=== PATIENT | male | born 1945 | race African-American/Black ===

== ENCOUNTER → 2016-08-24 | Outpatient (CLI) | payer MEDICARE, OTHER ==
[~2016-08-24] MED LIST: ATOR20TA86 PO; BENA5TAB26 PO; QUET200T PO; RISP1 PO; TAMS0.4C32 PO; TRAZ-147 PO
[2016-08-24 11:52] LABS: BASOPHILS % (AUTO) 0.4 % (0.0-2.0); EOSINOPHILS % (AUTO) 1.7 % (1.0-6.0); HEMATOCRIT 46.6 % (41-53); HEMOGLOBIN 14.9 g/dL (13.5-17.5); LYMPHOCYTES # (AUTO) 1.6 K/uL (1.0-4.8); LYMPHOCYTES % (AUTO) 27.1 % (22.0-44.0); MEAN CORPUSCULAR HEMOGLOBIN 28.8 pg (26.0-34.0); MEAN CORPUSCULAR VOLUME 90 fL (80-100); MONOCYTES # (AUTO) 0.4 K/uL (0.1-1.0); MONOCYTES % (AUTO) 6.7 % (2.0-9.0); NEUTROPHILS # (AUTO) 3.8 K/uL (1.8-7.7); NEUTROPHILS % (AUTO) 64.1 % (40.0-70.0); PLATELET COUNT (AUTO) 272 K/uL (150-450); RED BLOOD CELL COUNT(AUTO) 5.19 MIL/uL (4.50-5.90); RED CELL DISTRIBUTION WIDTH 15.2 % (11.5-14.5); WHITE BLOOD COUNT (AUTO) 5.9 K/uL (4.5-11.0)
[2016-08-24 12:01] LABS: ALBUMIN 3.7 g/dL (3.4-5.0); BILIRUBIN,TOTAL 0.3 mg/dL (0.1-1.0); CALCIUM, TOTAL 8.9 mg/dL (8.8-10.5); CREATININE 1.58 mg/dL (0.60-1.30); POTASSIUM 4.5 mmol/L (3.5-5.1); PROTHROMBIN TIME 10.7 SEC (9.4-11.6); TOTAL PROTEIN, SERUM 7.3 g/dL (6.4-8.2); URIC ACID 5.9 mg/dL (2.6-7.2)
[2016-08-24 12:03] LABS: HEMOGLOBIN A1C 6.2 % (4.5-6.2)
== END | disposition home or self-care (01) ==
LOC: LABPV 09:48
PROVIDERS: ATTEND Podiatrist Foot & Ankle Surgery
DX: I70.211 Atherosclerosis of native arteries of extremities with intermittent claudication, right leg (principal); R05 Cough; R09.81 Nasal congestion; M13.871 Other specified arthritis, right ankle and foot; M79.671 Pain in right foot; M25.70 Osteophyte, unspecified joint; E11.9 Type 2 diabetes mellitus without complications
CPT/HCPCS: 71020; 83036; 84550

== ENCOUNTER 2016-09-01 05:38 | Day surgery (SDC) | payer MEDICARE, OTHER ==
[~2016-09-01] VITALS: Ht 182.9 cm; Wt 91.8 kg
[~2016-09-01 05:38] MED LIST changes: -ATOR20TA86 PO; -RISP1 PO; -TRAZ-147 PO
[2016-09-01] MEDS ORDERED: SODIUM CHLORIDE 0.9% 1,000 ML IV ONE ×2 (05:45→06:00)
[2016-09-01] MEDS ORDERED: GUM MASTIC/STORAX/MSAL/ALCOHOL LIQUID 0.67 ML VIAL TP ONE (06:45)
[2016-09-01] MEDS: BUPIVACAINE HCL/PF 0.5% 30 ML VIAL ONE ×2 (07:49→07:51)
[2016-09-01] MEDS: LIDOCAINE HCL/PF 2% 5 ML VIAL ONE ×2 (07:49→07:52)
[2016-09-01] MEDS ORDERED: MEPERIDINE-PF 25 MG/ML SYRINGE IVP PRN (08:30)
[2016-09-01] MEDS ORDERED: FentaNYL CITRATE-PF 100 MCG/2 ML VIAL IVP PRN (08:30)
[2016-09-01] MEDS ORDERED: HYDROmorphone 2 MG/ML SYRINGE IVP PRN (08:30)
[2016-09-01] MEDS ORDERED: OXYGEN THERAPY IH SCH (08:48)
[2016-09-01] MEDS ORDERED: RINGERS SOLUTION,LACTATED 1,000 ML IV ONE (08:58)
[2016-09-01] MEDS ORDERED: CLINDAMYCIN 900 MG/D5% WATER 50 ML IV ONE (09:00)
[2016-09-01] MEDS ORDERED: ONDANSETRON HCL 4 MG/2 ML VIAL IVP ONE (12:00)
[2016-09-01] MEDS ORDERED: MIDAZOLAM HCL 2 MG/2 ML VIAL IVP ONE (12:00)
[2016-09-01] MEDS ORDERED: HYDROmorphone 2 MG/ML SYRINGE IVP ONE (12:00)
[2016-09-01] MEDS ORDERED: METOCLOPRAMIDE HCL 5 MG/ML 2 ML VIAL IVP ONE (12:00)
[2016-09-01] MEDS ORDERED: DEXAMETHASONE SOD PHOS 4 MG/ML VIAL IVP ONE (12:00)
[2016-09-01] MEDS ORDERED: FentaNYL CITRATE-PF 100 MCG/2 ML VIAL IVP ONE (12:00)
[2016-09-01] MEDS ORDERED: PROPOFOL 1% 20 ML VIAL IVP ONE (12:00)
== END 2016-09-01 11:55 | disposition home or self-care (01) ==
LOC: SURGERY 05:38
PROVIDERS: ATTEND Podiatrist Foot & Ankle Surgery
DX: M20.41 Other hammer toe(s) (acquired), right foot (principal); M24.574 Contracture, right foot; M19.071 Primary osteoarthritis, right ankle and foot; F17.200 Nicotine dependence, unspecified, uncomplicated; H40.9 Unspecified glaucoma; I10 Essential (primary) hypertension; F20.9 Schizophrenia, unspecified; G89.29 Other chronic pain; J40 Bronchitis, not specified as acute or chronic; Z88.0 Allergy status to penicillin; Z98.890 Other specified postprocedural states
CPT/HCPCS: 28285 ×2; 28308; 73630; 93005; C1713; J1100; J1170; J2250; J2405; J2704; J2765; J3010; J3490 ×3; J7030; J7120

== ENCOUNTER 2017-12-19 15:22 | Inpatient (IN) | payer MEDICARE, MEDICAID ==
[~2017-12-19] VITALS: Ht 182.9 cm; Wt 73.5 kg
[2017-12-19 15:43] LABS: GLUCOSE,POINT OF CARE 99 MG/DL (70-110)
[2017-12-19] MEDS ORDERED: QUEtiapine FUMARATE 100 MG TABLET PO ONE (16:30)
[2017-12-19] MEDS ORDERED: HYDROCODONE/ACETAMINOPHEN 5-325 MG TABLET PO ONE (16:30)
[2017-12-19] MEDS ORDERED: TAMSULOSIN HCL 0.4 MG CAPSULE PO ONE (16:30)
[2017-12-19] MEDS ORDERED: BENAZEPRIL HCL 20 MG TABLET PO ONE (16:30)
[2017-12-19 18:43] LABS: BASOPHILS % (AUTO) 0.7 % (0.0-2.0); EOSINOPHILS % (AUTO) 0.6 % (1.0-6.0); HEMATOCRIT 38.3 % (41-53); HEMOGLOBIN 12.9 g/dL (13.5-17.5); LYMPHOCYTES # (AUTO) 1.9 K/uL (1.0-4.8); LYMPHOCYTES % (AUTO) 28.4 % (22.0-44.0); MEAN CORPUSCULAR HEMOGLOBIN 29.3 pg (26.0-34.0); MEAN CORPUSCULAR HGB CONC 33.7 G/dL (31.0-37.0); MEAN CORPUSCULAR VOLUME 87 fL (80-100); MONOCYTES # (AUTO) 0.6 K/uL (0.1-1.0); NEUTROPHILS # (AUTO) 4.2 K/uL (1.8-7.7); NEUTROPHILS % (AUTO) 61.3 % (40.0-70.0); PLATELET COUNT (AUTO) 289 K/uL (150-450); RED CELL DISTRIBUTION WIDTH 14.6 % (11.5-14.5)
[2017-12-19 18:56] LABS: ANION GAP 8 mmol/L (8-16); CALCIUM, TOTAL 8.7 mg/dL (8.8-10.5); CARBON DIOXIDE 29 mmol/L (22-29); CHLORIDE 104 mmol/L (98-107); CREATININE 1.73 mg/dL (0.60-1.30); GLOMERULAR FILTR. RATE CALC 47 mL/min (>60); GLUCOSE,RANDOM 126 mg/dL (70-110); POTASSIUM 4.4 mmol/L (3.5-5.1); SODIUM SERUM 141 mmol/L (136-145); UREA NITROGEN, BLOOD 22 mg/dL (7-18)
[2017-12-19 18:57] LABS: AMPHET/METH SCREEN,URINE NEGATIVE (NEGATIVE); BARBITURATE SCREEN, URINE NEGATIVE (NEGATIVE); BENZODIAZEPINES SCREEN,URINE NEGATIVE (NEGATIVE); CANNABINOID SCREEN,URINE POSITIVE (NEGATIVE); COCAINE SCREEN,URINE NEGATIVE (NEGATIVE); METHADONE SCREEN, URINE NEGATIVE (NEGATIVE); OPIATE SCREEN,URINE NEGATIVE (NEGATIVE); PHENCYCLIDINE SCREEN,URINE NEGATIVE (NEGATIVE)
[2017-12-19 19:02] LABS: ALANINE AMINOTRANSFERASE 20 U/L (12-78); ALBUMIN 3.4 g/dL (3.4-5.0); ALKALINE PHOSPHATASE 80 U/L (46-116); ASPARTATE AMINOTRANSFERASE 23 U/L (15-37); BILIRUBIN,TOTAL 0.6 mg/dL (0.1-1.0); TOTAL PROTEIN, SERUM 6.7 g/dL (6.4-8.2)
[2017-12-19] MEDS ORDERED: LORazepam 2 MG TABLET PO PRN (19:15)
[2017-12-19] MEDS ORDERED: HALOPERIDOL 5 MG TABLET PO PRN (19:15)
[2017-12-19] MEDS ORDERED: ZOLPIDEM TARTRATE 10 MG TABLET PO PRN (19:15)
[2017-12-20 00:36] VITALS: BP 114/59
[2017-12-20] MEDS ORDERED: PNEUMOCOCCAL VACCINE POLYVALENT 0.5 ML VIAL [PPSV23] IM ONE (01:30)
[2017-12-20 06:34] LABS: GLUCOMETER DEV NAME(LOC) BV2S 2; GLUCOSE,POINT OF CARE 105 MG/DL (70-110)
[2017-12-20 08:58] VITALS: BP 123/61
[2017-12-20] MEDS ORDERED: ACETAMINOPHEN 325 MG TABLET PO PRN (11:00)
[2017-12-20 14:52] VITALS: BP 111/67
[2017-12-20] MEDS: IBUPROFEN 600 MG TABLET PO PRN (14:55)
[2017-12-20 16:14] VITALS: BP 125/66
[2017-12-20] MEDS: ALBUTEROL SULFATE HFA 90 MCG/PUFF 8 GM INHALER IH PRN (18:33)
[2017-12-20] MEDS: QUEtiapine FUMARATE 200 MG TABLET PO SCH (21:33)
[2017-12-21 01:09] VITALS: BP 113/64
[2017-12-21 08:25] VITALS: BP 121/76
[2017-12-21] MEDS: ALBUTEROL SULFATE HFA 90 MCG/PUFF 8 GM INHALER IH PRN (09:01)
[2017-12-21] MEDS: BENAZEPRIL HCL 20 MG TABLET PO SCH (09:01)
[2017-12-21] MEDS: TAMSULOSIN HCL 0.4 MG CAPSULE PO SCH (09:01)
[2017-12-21 09:12] LABS: CALCIUM, TOTAL 8.8 mg/dL (8.8-10.5); CREATININE 1.75 mg/dL (0.60-1.30); POTASSIUM 4.7 mmol/L (3.5-5.1)
[2017-12-21 09:27] LABS: HEMOGLOBIN A1C 6.3 % (4.5-6.2)
[2017-12-21 09:48] LABS: CHOL/HDL RATIO 1.8 (4.2-7.3); CHOLESTEROL 114 mg/dL (131-200); CREATINE KINASE MB 1.5 ng/mL (0-5); CREATINE KINASE, TOTAL 122 U/L (39-308); FREE T4 (FREE THYROXINE) 0.84 ng/dL (0.76-1.46); HDL CHOLESTEROL 65 mg/dL (40-60); LDL CHOL (CALC.) 38 mg/dL (0-130); THYROID STIMULATING HORMONE 0.56 uIU/mL (0.36-3.74); TRIGLYCERIDES 56 mg/dL (15-150)
[2017-12-21 09:58] LABS: GLUCOMETER DEV NAME(LOC) BV2S 2; GLUCOSE,POINT OF CARE 103 MG/DL (70-110)
[2017-12-21 10:02] LABS: URIC ACID 4.7 mg/dL (2.6-7.2)
[2017-12-21] MEDS ORDERED: MECLIZINE HCL 25 MG TABLET PO PRN (11:15)
[2017-12-21 12:23] LABS: FOLATE SERUM 6.8 ng/mL (5.4-)
[2017-12-21 16:22] VITALS: BP 119/64
[2017-12-21] MEDS: BACITRACIN 28.4 GM OINTMENT TP PRN (16:48)
[2017-12-21] MEDS: QUEtiapine FUMARATE 200 MG TABLET PO SCH (21:20)
[2017-12-22 02:40] VITALS: BP 113/62
[2017-12-22 06:48] VITALS: BP 110/73
[2017-12-22 08:49] VITALS: BP 122/64
[2017-12-22] MEDS: TAMSULOSIN HCL 0.4 MG CAPSULE PO SCH (08:59)
[2017-12-22] MEDS: BENAZEPRIL HCL 20 MG TABLET PO SCH (08:59)
[2017-12-22] MEDS: BACITRACIN 28.4 GM OINTMENT TP PRN (09:27)
[2017-12-22] MEDS: ALBUTEROL SULFATE HFA 90 MCG/PUFF 8 GM INHALER IH PRN (09:28)
[2017-12-22 16:13] VITALS: BP 118/69
[2017-12-22] MEDS: QUEtiapine FUMARATE 200 MG TABLET PO SCH (20:13)
[2017-12-23 05:28] VITALS: BP 129/75
[2017-12-23] MEDS: IBUPROFEN 600 MG TABLET PO PRN (05:32)
[2017-12-23] MEDS: ALBUTEROL SULFATE HFA 90 MCG/PUFF 8 GM INHALER IH PRN (05:36)
[2017-12-23] MEDS: BACITRACIN 28.4 GM OINTMENT TP PRN ×2 (06:45→08:30)
[2017-12-23 08:00] VITALS: BP 112/63
[2017-12-23] MEDS: TAMSULOSIN HCL 0.4 MG CAPSULE PO SCH (08:27)
[2017-12-23] MEDS: BENAZEPRIL HCL 20 MG TABLET PO SCH (08:27)
== END 2017-12-23 12:40 | disposition home or self-care (01) | DRG 750 ==
LOC: EMS 15:23 → B2S 20:40
PROVIDERS: ADMIT Psychiatry & Neurology Child & Adolescent Psychiatry; ATTEND Psychiatry & Neurology Psychiatry
DX: F25.9 Schizoaffective disorder, unspecified (principal); R64 Cachexia; E11.22 Type 2 diabetes mellitus with diabetic chronic kidney disease; J44.9 Chronic obstructive pulmonary disease, unspecified; D64.9 Anemia, unspecified; F14.90 Cocaine use, unspecified, uncomplicated; F17.210 Nicotine dependence, cigarettes, uncomplicated; H40.9 Unspecified glaucoma; I12.9 Hypertensive chronic kidney disease with stage 1 through stage 4 chronic kidney disease, or unspecified chronic kidney disease; N18.9 Chronic kidney disease, unspecified; N40.0 Benign prostatic hyperplasia without lower urinary tract symptoms; F12.10 Cannabis abuse, uncomplicated; Z59.0 Homelessness; Z85.46 Personal history of malignant neoplasm of prostate; Z88.0 Allergy status to penicillin; Z79.899 Other long term (current) drug therapy; Z68.22 Body mass index [BMI] 22.0-22.9, adult
CPT/HCPCS: 80074; 82306; 82607; 82746; 83036; 83735; 84439; 84443; 84550; 99285; 99406; G0480; J3535

== ENCOUNTER 2018-12-16 01:01 | Emergency (ER) | payer MEDICARE, OTHER ==
[~2018-12-16] VITALS: Ht 185.4 cm; Wt 77.3 kg
[2018-12-16] MEDS ORDERED: TAMSULOSIN HCL 0.4 MG CAPSULE PO ONE (03:45)
[2018-12-16 03:51] VITALS: BP 157/81
== END 2018-12-16 03:54 | disposition home or self-care (01) ==
LOC: EMS 01:05
DX: N40.0 Benign prostatic hyperplasia without lower urinary tract symptoms (principal); I10 Essential (primary) hypertension; E11.9 Type 2 diabetes mellitus without complications; F20.9 Schizophrenia, unspecified; F12.90 Cannabis use, unspecified, uncomplicated; F14.90 Cocaine use, unspecified, uncomplicated; F15.90 Other stimulant use, unspecified, uncomplicated; F17.210 Nicotine dependence, cigarettes, uncomplicated; Z88.0 Allergy status to penicillin; Z79.899 Other long term (current) drug therapy

== ENCOUNTER 2019-01-23 10:07 | Inpatient (IN) | payer MEDICARE, OTHER ==
[~2019-01-23] VITALS: Ht 185.4 cm; Wt 79.5 kg
[2019-01-23] MEDS ORDERED: UNKNOWN HTN MED PO (10:24)
[2019-01-23 10:57] LABS: BASOPHILS % (AUTO) 0.6 % (0.0-2.0); EOSINOPHILS % (AUTO) 1.7 % (1.0-6.0); HEMATOCRIT 38.5 % (41-53); HEMOGLOBIN 12.3 g/dL (13.5-17.5); LYMPHOCYTES # (AUTO) 1.4 K/uL (1.0-4.8); LYMPHOCYTES % (AUTO) 22.1 % (22.0-44.0); MEAN CORPUSCULAR HEMOGLOBIN 28.9 pg (26.0-34.0); MEAN CORPUSCULAR HGB CONC 31.9 G/dL (31.0-37.0); MEAN CORPUSCULAR VOLUME 91 fL (80-100); MONOCYTES # (AUTO) 0.7 K/uL (0.1-1.0); NEUTROPHILS # (AUTO) 3.9 K/uL (1.8-7.7); NEUTROPHILS % (AUTO) 63.6 % (40.0-70.0); PLATELET COUNT (AUTO) 260 K/uL (150-450); RED BLOOD CELL COUNT(AUTO) 4.25 MIL/uL (4.50-5.90); RED CELL DISTRIBUTION WIDTH 15.3 % (11.5-14.5)
[2019-01-23 11:09] LABS: PROTHROMBIN TIME 10.5 SEC (9.4-11.6)
[2019-01-23 11:16] LABS: CALCIUM, TOTAL 8.6 mg/dL (8.8-10.5); CREATININE 1.58 mg/dL (0.60-1.30); POTASSIUM 3.9 mmol/L (3.5-5.1)
[2019-01-23 11:40] LABS: APPEARANCE,URINE CLEAR (CLEAR); BILIRUBIN,URINE NEGATIVE (NEGATIVE); GLUCOSE, URINE (UA) NEGATIVE (NEGATIVE); KETONES,URINE NEGATIVE (NEGATIVE); LEUKOCYTE ESTERASE ,URINE NEGATIVE (NEGATIVE); NITRATE,URINE NEGATIVE (NEGATIVE); OCCULT BLOOD,URINE SMALL (NEGATIVE); PROTEIN,URINE NEGATIVE (NEGATIVE); UROBILINOGEN,URINE 0.2 mg/dL (<=1.0)
[2019-01-23 11:42] LABS: ALBUMIN 3.2 g/dL (3.4-5.0); BILIRUBIN,TOTAL 0.3 mg/dL (0.1-1.0); TOTAL PROTEIN, SERUM 6.2 g/dL (6.4-8.2)
[2019-01-23 12:00] LABS: BACTERIA,URINE None Seen /HPF (None Seen); SQUAMOUS EPITHELIAL CELL,UR Rare /LPF (None Seen)
[2019-01-23] MEDS ORDERED: LEVOFLOXACIN 750 MG/D5% WATER 150 ML IV ONE (12:00)
[2019-01-23] MEDS ORDERED: IPRATROPIUM BROMIDE 0.5 MG/2.5 ML NEB SOLUTION NEB ONE (12:00)
[2019-01-23] MEDS ORDERED: ALBUTEROL SULFATE 2.5 MG/0.5 ML NEB SOLUTION NEB ONE (12:00)
[2019-01-23] MEDS ORDERED: ACETAMINOPHEN 325 MG TABLET PO PRN ×2 (12:30→18:00)
[2019-01-23] MEDS ORDERED: 0.9% SODIUM CHLORIDE 10 ML SYRINGE IVP PRN (12:30)
[2019-01-23] MEDS ORDERED: CefTRIAXone SODIUM 2 GM in DEXTROSE 5%-WATER 50 ML IV SCH ×4 (18:00)
[2019-01-23] MEDS ORDERED: ONDANSETRON HCL 4 MG/2 ML VIAL IVP PRN (18:00)
[2019-01-23] MEDS ORDERED: ALBUTEROL SULFATE 2.5 MG/0.5 ML NEB SOLUTION NEB PRN (18:00)
[2019-01-23] MEDS ORDERED: MAGNESIUM HYDROXIDE SUSPENSION 30 ML UDCUP PO PRN (18:00)
[2019-01-23] MEDS ORDERED: HYDROCODONE/ACETAMINOPHEN 5-325 MG TABLET PO PRN (18:00)
[2019-01-23] MEDS ORDERED: IPRATROPIUM BROMIDE 0.5 MG/2.5 ML NEB SOLUTION NEB PRN (18:00)
[2019-01-23] MEDS ORDERED: ZOLPIDEM TARTRATE 5 MG TABLET PO PRN (18:00)
[2019-01-23] MEDS ORDERED: MORPHINE SULFATE 2 MG/ML SYRINGE IVP PRN (18:00)
[2019-01-23] MEDS ORDERED: BISACODYL 10 MG RECTAL RECTAL SUPPOSITORY PR PRN (18:00)
[2019-01-23] MEDS: AZITHROMYCIN 500 MG/NS 250 ML IV SCH (19:51)
[2019-01-23] MEDS ORDERED: QUEtiapine FUMARATE 200 MG TABLET PO SCH (21:00)
[2019-01-23] MEDS ORDERED: SODIUM CHLORIDE 0.9% 500 ML IV ONE (21:46)
[2019-01-23] MEDS: DOCUSATE SODIUM 100 MG CAPSULE PO SCH (22:25)
[2019-01-23] MEDS: HEPARIN SODIUM,PORCINE 5,000 UNITS/ML VIAL SQ SCH (22:26)
[2019-01-23] MEDS: CefTRIAXone SODIUM 2 GM in DEXTROSE 5%-WATER 50 ML IV SCH (22:26)
[2019-01-23 22:49] VITALS: BP 144/72
[2019-01-24] VITALS (7 sets, daily range): BP systolic 123–161; BP diastolic 63–81
[2019-01-24 07:22] LABS: BASOPHILS % (AUTO) 0.4 % (0.0-2.0); EOSINOPHILS % (AUTO) 1.5 % (1.0-6.0); HEMATOCRIT 40.2 % (41-53); HEMOGLOBIN 12.9 g/dL (13.5-17.5); LYMPHOCYTES # (AUTO) 1.5 K/uL (1.0-4.8); LYMPHOCYTES % (AUTO) 26.1 % (22.0-44.0); MEAN CORPUSCULAR HEMOGLOBIN 28.9 pg (26.0-34.0); MEAN CORPUSCULAR HGB CONC 32.1 G/dL (31.0-37.0); MEAN CORPUSCULAR VOLUME 90 fL (80-100); MONOCYTES # (AUTO) 0.7 K/uL (0.1-1.0); MONOCYTES % (AUTO) 11.9 % (2.0-9.0); NEUTROPHILS # (AUTO) 3.5 K/uL (1.8-7.7); NEUTROPHILS % (AUTO) 60.1 % (40.0-70.0); PLATELET COUNT (AUTO) 273 K/uL (150-450); RED BLOOD CELL COUNT(AUTO) 4.47 MIL/uL (4.50-5.90); RED CELL DISTRIBUTION WIDTH 15.4 % (11.5-14.5)
[2019-01-24 07:38] LABS: BILIRUBIN,TOTAL 0.3 mg/dL (0.1-1.0); CALCIUM, TOTAL 8.6 mg/dL (8.8-10.5); CREATININE 1.42 mg/dL (0.60-1.30); POTASSIUM 4.1 mmol/L (3.5-5.1)
[2019-01-24] MEDS: BENAZEPRIL HCL 20 MG TABLET PO SCH (08:26)
[2019-01-24] MEDS: TAMSULOSIN HCL 0.4 MG CAPSULE PO SCH (08:26)
[2019-01-24] MEDS: DOCUSATE SODIUM 100 MG CAPSULE PO SCH ×2 (08:26→21:00)
[2019-01-24] MEDS: HEPARIN SODIUM,PORCINE 5,000 UNITS/ML VIAL SQ SCH ×2 (08:27→16:15)
[2019-01-24] MEDS: AZITHROMYCIN 500 MG/NS 250 ML IV SCH (18:39)
[2019-01-24] MEDS ORDERED: DEXTROSE 50%-WATER 25 GM/50 ML SYRINGE IVP PRN (18:45)
[2019-01-24] MEDS ORDERED: INSULIN LISPRO 100 UNITS/ML SQ PRN (18:45)
[2019-01-24] MEDS: CefTRIAXone SODIUM 2 GM in DEXTROSE 5%-WATER 50 ML IV SCH (21:44)
[2019-01-24] MEDS: QUEtiapine FUMARATE 200 MG ER TABLET PO SCH (21:45)
[2019-01-25 04:57] VITALS: BP 128/61
[2019-01-25 07:30] LABS: BASOPHILS % (AUTO) 0.6 % (0.0-2.0); EOSINOPHILS % (AUTO) 1.5 % (1.0-6.0); HEMATOCRIT 40.1 % (41-53); HEMOGLOBIN 12.8 g/dL (13.5-17.5); LYMPHOCYTES # (AUTO) 1.8 K/uL (1.0-4.8); LYMPHOCYTES % (AUTO) 31.2 % (22.0-44.0); MEAN CORPUSCULAR HEMOGLOBIN 28.8 pg (26.0-34.0); MEAN CORPUSCULAR HGB CONC 31.9 G/dL (31.0-37.0); MEAN CORPUSCULAR VOLUME 90 fL (80-100); MONOCYTES # (AUTO) 0.6 K/uL (0.1-1.0); MONOCYTES % (AUTO) 10.5 % (2.0-9.0); NEUTROPHILS # (AUTO) 3.3 K/uL (1.8-7.7); NEUTROPHILS % (AUTO) 56.2 % (40.0-70.0); PLATELET COUNT (AUTO) 297 K/uL (150-450); RED BLOOD CELL COUNT(AUTO) 4.44 MIL/uL (4.50-5.90); RED CELL DISTRIBUTION WIDTH 15.4 % (11.5-14.5)
[2019-01-25 07:59] VITALS: BP_SYST 120; BP_SYST 133; BP_DIAS 63; BP_DIAS 86
[2019-01-25 08:15] LABS: ALBUMIN 2.9 g/dL (3.4-5.0); BILIRUBIN,TOTAL 0.2 mg/dL (0.1-1.0); CALCIUM, TOTAL 8.6 mg/dL (8.8-10.5); CREATININE 1.49 mg/dL (0.60-1.30); POTASSIUM 4.1 mmol/L (3.5-5.1)
[2019-01-25] MEDS: BENAZEPRIL HCL 20 MG TABLET PO SCH (08:16)
[2019-01-25] MEDS: HEPARIN SODIUM,PORCINE 5,000 UNITS/ML VIAL SQ SCH ×3 (08:16→15:49)
[2019-01-25] MEDS: DOCUSATE SODIUM 100 MG CAPSULE PO SCH ×2 (08:16→20:02)
[2019-01-25] MEDS: TAMSULOSIN HCL 0.4 MG CAPSULE PO SCH (08:16)
[2019-01-25 14:04] VITALS: BP 122/65
[2019-01-25 16:13] VITALS: BP 136/67
[2019-01-25 19:10] LABS: GLUCOMETER DEV NAME(LOC) 6N.2; GLUCOSE,POINT OF CARE 120 MG/DL (70-110)
[2019-01-25 19:45] VITALS: BP 146/79
[2019-01-25] MEDS: AZITHROMYCIN 500 MG/NS 250 ML IV SCH (20:01)
[2019-01-25] MEDS: QUEtiapine FUMARATE 200 MG ER TABLET PO SCH (20:03)
[2019-01-25 20:12] LABS: GLUCOMETER DEV NAME(LOC) 4E.2; GLUCOSE,POINT OF CARE 50 MG/DL (70-110)
[2019-01-25 20:12] LABS: GLUCOMETER DEV NAME(LOC) 4E.2; GLUCOSE,POINT OF CARE 97 MG/DL (70-110)
[2019-01-25 20:12] LABS: GLUCOMETER DEV NAME(LOC) 4E.2; GLUCOSE,POINT OF CARE 73 MG/DL (70-110)
[2019-01-25 20:12] LABS: GLUCOMETER DEV NAME(LOC) 4E.2; GLUCOSE,POINT OF CARE 82 MG/DL (70-110)
[2019-01-25 20:12] LABS: GLUCOMETER DEV NAME(LOC) 4E.2; GLUCOSE,POINT OF CARE 112 MG/DL (70-110)
[2019-01-25 20:12] LABS: GLUCOMETER DEV NAME(LOC) 4E.2; GLUCOSE,POINT OF CARE 95 MG/DL (70-110)
[2019-01-25 20:50] LABS: GLUCOMETER DEV NAME(LOC) 4E.2; GLUCOSE,POINT OF CARE 132 MG/DL (70-110)
[2019-01-25] MEDS: CefTRIAXone SODIUM 2 GM in DEXTROSE 5%-WATER 50 ML IV SCH (21:06)
[2019-01-25 23:17] VITALS: BP 125/70
[2019-01-26 04:42] VITALS: BP 110/57
[2019-01-26 07:15] LABS: GLUCOMETER DEV NAME(LOC) 4E.2; GLUCOSE,POINT OF CARE 124 MG/DL (70-110)
[2019-01-26 07:15] LABS: GLUCOMETER DEV NAME(LOC) 4E.2; GLUCOSE,POINT OF CARE 61 MG/DL (70-110)
[2019-01-26 07:19] LABS: BASOPHILS % (AUTO) 0.6 % (0.0-2.0); EOSINOPHILS % (AUTO) 1.7 % (1.0-6.0); HEMATOCRIT 42.7 % (41-53); HEMOGLOBIN 13.6 g/dL (13.5-17.5); LYMPHOCYTES # (AUTO) 1.8 K/uL (1.0-4.8); LYMPHOCYTES % (AUTO) 28.1 % (22.0-44.0); MEAN CORPUSCULAR HEMOGLOBIN 28.8 pg (26.0-34.0); MEAN CORPUSCULAR HGB CONC 31.7 G/dL (31.0-37.0); MEAN CORPUSCULAR VOLUME 91 fL (80-100); MONOCYTES # (AUTO) 0.6 K/uL (0.1-1.0); MONOCYTES % (AUTO) 9.3 % (2.0-9.0); NEUTROPHILS # (AUTO) 3.8 K/uL (1.8-7.7); NEUTROPHILS % (AUTO) 60.3 % (40.0-70.0); PLATELET COUNT (AUTO) 308 K/uL (150-450); RED BLOOD CELL COUNT(AUTO) 4.71 MIL/uL (4.50-5.90); RED CELL DISTRIBUTION WIDTH 15.6 % (11.5-14.5)
[2019-01-26 07:44] LABS: ALBUMIN 3.3 g/dL (3.4-5.0); BILIRUBIN,TOTAL 0.2 mg/dL (0.1-1.0); CALCIUM, TOTAL 8.8 mg/dL (8.8-10.5); CREATININE 1.49 mg/dL (0.60-1.30); POTASSIUM 4.5 mmol/L (3.5-5.1); TOTAL PROTEIN, SERUM 6.7 g/dL (6.4-8.2)
[2019-01-26 07:45] VITALS: BP 126/60
[2019-01-26] MEDS: DOCUSATE SODIUM 100 MG CAPSULE PO SCH (08:55)
[2019-01-26] MEDS: BENAZEPRIL HCL 20 MG TABLET PO SCH (08:55)
[2019-01-26] MEDS: HEPARIN SODIUM,PORCINE 5,000 UNITS/ML VIAL SQ SCH ×2 (08:55)
[2019-01-26] MEDS: TAMSULOSIN HCL 0.4 MG CAPSULE PO SCH (08:55)
[2019-01-26 11:56] VITALS: BP 121/55
[2019-01-26] MEDS ORDERED: AZITHROMYCIN 250 MG TABLET PO ONE (12:30)
[2019-01-26 12:40] LABS: GLUCOMETER DEV NAME(LOC) 4E.2; GLUCOSE,POINT OF CARE 106 MG/DL (70-110)
== END 2019-01-26 14:33 | disposition home or self-care (01) | DRG 194 ==
LOC: EMS 10:08 → 4E 14:31
PROVIDERS: ADMIT Hospitalist; ATTEND Hospitalist
DX: J18.9 Pneumonia, unspecified organism (principal); E44.0 Moderate protein-calorie malnutrition; F20.0 Paranoid schizophrenia; J44.0 Chronic obstructive pulmonary disease with (acute) lower respiratory infection; E11.22 Type 2 diabetes mellitus with diabetic chronic kidney disease; I12.9 Hypertensive chronic kidney disease with stage 1 through stage 4 chronic kidney disease, or unspecified chronic kidney disease; N18.9 Chronic kidney disease, unspecified; F20.9 Schizophrenia, unspecified; D64.9 Anemia, unspecified; F12.90 Cannabis use, unspecified, uncomplicated; F14.90 Cocaine use, unspecified, uncomplicated; F17.200 Nicotine dependence, unspecified, uncomplicated; Z79.899 Other long term (current) drug therapy; Z59.0 Homelessness; Z85.46 Personal history of malignant neoplasm of prostate; Z91.19 Patient's noncompliance with other medical treatment and regimen; Z88.0 Allergy status to penicillin; Z68.23 Body mass index [BMI] 23.0-23.9, adult
CPT/HCPCS: 93005; 94640; 96365; 96366; G0378; J0456; J0696; J1644; J1956; J7040; J7060

== ENCOUNTER 2019-06-04 08:27 | Emergency (ER) | payer MEDICARE, OTHER ==
[~2019-06-04] VITALS: Ht 188 cm; Wt 86.4 kg
[~2019-06-04 08:27] MED LIST changes: +TAMS-13 PO; -TAMS0.4C32 PO
[2019-06-04 08:48] LABS: GLUCOSE,POINT OF CARE 91 MG/DL (70-110)
[2019-06-04 09:35] LABS: BASOPHILS % (AUTO) 0.6 % (0.0-2.0); EOSINOPHILS % (AUTO) 2.6 % (1.0-6.0); HEMATOCRIT 38.2 % (41-53); HEMOGLOBIN 12.6 g/dL (13.5-17.5); LYMPHOCYTES # (AUTO) 1.4 K/uL (1.0-4.8); LYMPHOCYTES % (AUTO) 25.4 % (22.0-44.0); MEAN CORPUSCULAR HEMOGLOBIN 28.4 pg (26.0-34.0); MEAN CORPUSCULAR HGB CONC 33.1 G/dL (31.0-37.0); MEAN CORPUSCULAR VOLUME 86 fL (80-100); MONOCYTES # (AUTO) 0.6 K/uL (0.1-1.0); MONOCYTES % (AUTO) 10.3 % (2.0-9.0); NEUTROPHILS # (AUTO) 3.4 K/uL (1.8-7.7); NEUTROPHILS % (AUTO) 61.1 % (40.0-70.0); PLATELET COUNT (AUTO) 310 K/uL (150-450); RED BLOOD CELL COUNT(AUTO) 4.45 MIL/uL (4.50-5.90); RED CELL DISTRIBUTION WIDTH 14.9 % (11.5-14.5)
[2019-06-04 09:45] LABS: CALCIUM, TOTAL 8.4 mg/dL (8.8-10.5); CREATININE 1.58 mg/dL (0.60-1.30); POTASSIUM 4.4 mmol/L (3.5-5.1)
[2019-06-04] MEDS ORDERED: ALBUTEROL SULFATE 2.5 MG/0.5 ML NEB SOLUTION NEB ONE (10:30)
[2019-06-04] MEDS ORDERED: IPRATROPIUM BROMIDE 0.5 MG/2.5 ML NEB SOLUTION NEB ONE (10:30)
[2019-06-04] MEDS ORDERED: PredniSONE 20 MG TABLET PO ONE (10:30)
[2019-06-04 11:37] VITALS: BP 154/82
== END 2019-06-04 11:35 | disposition home or self-care (01) ==
LOC: EMS 08:28
DX: J20.9 Acute bronchitis, unspecified (principal); J44.9 Chronic obstructive pulmonary disease, unspecified; E11.9 Type 2 diabetes mellitus without complications; I10 Essential (primary) hypertension; F20.9 Schizophrenia, unspecified; F17.210 Nicotine dependence, cigarettes, uncomplicated; F14.90 Cocaine use, unspecified, uncomplicated; F12.90 Cannabis use, unspecified, uncomplicated; F19.90 Other psychoactive substance use, unspecified, uncomplicated; Z88.0 Allergy status to penicillin
CPT/HCPCS: 36415; 71045; 80048; 82962; 85025; 94640; 99284; J7512

== ENCOUNTER 2019-06-04 16:12 | Emergency (ER) | payer MEDICARE, OTHER | END 2019-06-04 19:00 | disposition left against medical advice (07) | LOC: EMS 16:22 | DX: R05 Cough (principal); Z53.21 Procedure and treatment not carried out due to patient leaving prior to being seen by health care provider | CPT/HCPCS: 82948; 93005 ==

== ENCOUNTER 2019-06-04 22:05 | Emergency (ER) | payer MEDICARE, OTHER ==
[~2019-06-04] VITALS: Ht 188 cm; Wt 80.9 kg
[2019-06-04 22:51] VITALS: BP 148/86
[2019-06-04 23:11] LABS: GLUCOSE,POINT OF CARE 142 MG/DL (70-110)
== END 2019-06-05 00:17 | disposition left against medical advice (07) ==
LOC: EMS 22:31
DX: R55 Syncope and collapse (principal); E11.9 Type 2 diabetes mellitus without complications; I10 Essential (primary) hypertension; J44.1 Chronic obstructive pulmonary disease with (acute) exacerbation; F20.9 Schizophrenia, unspecified; F17.210 Nicotine dependence, cigarettes, uncomplicated; F14.90 Cocaine use, unspecified, uncomplicated; F12.90 Cannabis use, unspecified, uncomplicated; F19.90 Other psychoactive substance use, unspecified, uncomplicated; Z88.0 Allergy status to penicillin
CPT/HCPCS: 93005

== ENCOUNTER 2019-07-27 06:34 | Inpatient (IN) | payer MEDICARE, OTHER ==
[~2019-07-27] VITALS: Ht 185.4 cm; Wt 72.3 kg
[2019-07-27 09:28] LABS: APPEARANCE,URINE CLEAR (CLEAR); BILIRUBIN,URINE NEGATIVE (NEGATIVE); GLUCOSE, URINE (UA) NEGATIVE (NEGATIVE); KETONES,URINE NEGATIVE (NEGATIVE); LEUKOCYTE ESTERASE ,URINE NEGATIVE (NEGATIVE); NITRATE,URINE NEGATIVE (NEGATIVE); OCCULT BLOOD,URINE TRACE (NEGATIVE); PH,URINE 6.5 (5.0-8.0); PROTEIN,URINE NEGATIVE (NEGATIVE); UROBILINOGEN,URINE 0.2 mg/dL (<=1.0)
[2019-07-27 09:56] LABS: BACTERIA,URINE None Seen /HPF (None Seen); RBC,URINE 0-2 /HPF (0-2); SQUAMOUS EPITHELIAL CELL,UR Few /LPF (None Seen); WBC,URINE None Seen /HPF (0-5)
[2019-07-27] MEDS ORDERED: CefTRIAXone 1 GM/DEXTROSE 50 ML IV ONE (11:15)
[2019-07-27] MEDS ORDERED: 0.9% SODIUM CHLORIDE 10 ML SYRINGE IVP PRN ×2 (11:15→18:45)
[2019-07-27] MEDS ORDERED: MORPHINE SULFATE 4 MG/ML SYRINGE IVP ONE (11:15)
[2019-07-27] MEDS ORDERED: BENA20TA11 PO (11:18)
[2019-07-27] MEDS ORDERED: ONDANSETRON HCL 4 MG/2 ML VIAL IVP PRN ×2 (11:30→18:45)
[2019-07-27] MEDS ORDERED: ACETAMINOPHEN 325 MG TABLET PO PRN (11:30)
[2019-07-27 11:44] LABS: BASOPHILS % (AUTO) 0.5 % (0.0-2.0); EOSINOPHILS % (AUTO) 1.7 % (1.0-6.0); HEMATOCRIT 43.3 % (41-53); LYMPHOCYTES # (AUTO) 1.4 K/uL (1.0-4.8); LYMPHOCYTES % (AUTO) 18.6 % (22.0-44.0); MEAN CORPUSCULAR HEMOGLOBIN 28.3 pg (26.0-34.0); MEAN CORPUSCULAR HGB CONC 32.4 G/dL (31.0-37.0); MEAN CORPUSCULAR VOLUME 88 fL (80-100); MONOCYTES # (AUTO) 0.6 K/uL (0.1-1.0); MONOCYTES % (AUTO) 7.4 % (2.0-9.0); NEUTROPHILS # (AUTO) 5.5 K/uL (1.8-7.7); NEUTROPHILS % (AUTO) 71.8 % (40.0-70.0); PLATELET COUNT (AUTO) 360 K/uL (150-450); RED BLOOD CELL COUNT(AUTO) 4.94 MIL/uL (4.50-5.90); RED CELL DISTRIBUTION WIDTH 15.2 % (11.5-14.5)
[2019-07-27 11:51] LABS: INR 1.1 (0.9-1.1); PROTHROMBIN TIME 11.1 SEC (9.4-11.6)
[2019-07-27 11:52] LABS: CALCIUM, TOTAL 8.5 mg/dL (8.8-10.5); CREATININE 1.43 mg/dL (0.60-1.30); POTASSIUM 4.6 mmol/L (3.5-5.1)
[2019-07-27 11:57] LABS: ALBUMIN 3.9 g/dL (3.4-5.0); BILIRUBIN,TOTAL 0.4 mg/dL (0.1-1.0); TOTAL PROTEIN, SERUM 8.1 g/dL (6.4-8.2)
[2019-07-27 12:06] LABS: LACTIC ACID 1.1 mmol/L (0.4-2.0)
[2019-07-27 13:09] VITALS: BP 132/89
[2019-07-27] MEDS ORDERED: INFLUENZA VIRUS VACCINE QVS 2019-20 (3YR+)/PF 60 MCG/0.5 ML SYRINGE IM ONE (14:45)
[2019-07-27] MEDS ORDERED: PNEUMOCOCCAL VACCINE POLYVALENT 0.5 ML VIAL [PPSV23] IM ONE (15:00)
[2019-07-27 16:02] VITALS: BP 143/81
[2019-07-27] MEDS ORDERED: VANCOMYCIN HCL 1.5 GM in DEXTROSE 5%-WATER 250 ML IV ONE (18:45)
[2019-07-27 19:58] VITALS: BP 155/82
[2019-07-27] MEDS ORDERED: SODIUM CHLORIDE 0.9% 500 ML IV ONE (20:50)
[2019-07-27] MEDS: BENAZEPRIL HCL 20 MG TABLET PO SCH (20:56)
[2019-07-27] MEDS: QUEtiapine FUMARATE 200 MG TABLET PO SCH (20:56)
[2019-07-27] MEDS: DOCUSATE SODIUM 100 MG CAPSULE PO SCH (20:57)
[2019-07-27] MEDS: TAMSULOSIN HCL 0.4 MG CAPSULE PO SCH (20:57)
[2019-07-27] MEDS: FAMOTIDINE 10 MG/ML 2 ML VIAL IVP SCH (20:57)
[2019-07-28 04:53] VITALS: BP 147/72
[2019-07-28] MEDS: TAMSULOSIN HCL 0.4 MG CAPSULE PO SCH (07:54)
[2019-07-28] MEDS: DOCUSATE SODIUM 100 MG CAPSULE PO SCH ×2 (07:54→20:19)
[2019-07-28] MEDS: BENAZEPRIL HCL 20 MG TABLET PO SCH (07:55)
[2019-07-28] MEDS: FAMOTIDINE 10 MG/ML 2 ML VIAL IVP SCH (07:55)
[2019-07-28] MEDS: VANCOMYCIN HCL 500 MG in DEXTROSE 5%-WATER 100 ML IV SCH ×2 (08:01→20:19)
[2019-07-28 08:55] LABS: BASOPHILS % (AUTO) 0.5 % (0.0-2.0); EOSINOPHILS % (AUTO) 1.5 % (1.0-6.0); HEMATOCRIT 44.5 % (41-53); HEMOGLOBIN 14.4 g/dL (13.5-17.5); LYMPHOCYTES # (AUTO) 1.2 K/uL (1.0-4.8); LYMPHOCYTES % (AUTO) 19.1 % (22.0-44.0); MEAN CORPUSCULAR HEMOGLOBIN 28.5 pg (26.0-34.0); MEAN CORPUSCULAR HGB CONC 32.4 G/dL (31.0-37.0); MEAN CORPUSCULAR VOLUME 88 fL (80-100); MONOCYTES # (AUTO) 0.5 K/uL (0.1-1.0); MONOCYTES % (AUTO) 7.9 % (2.0-9.0); NEUTROPHILS # (AUTO) 4.4 K/uL (1.8-7.7); PLATELET COUNT (AUTO) 369 K/uL (150-450); RED BLOOD CELL COUNT(AUTO) 5.06 MIL/uL (4.50-5.90); RED CELL DISTRIBUTION WIDTH 15.3 % (11.5-14.5)
[2019-07-28 08:56] VITALS: BP 166/91
[2019-07-28 09:02] LABS: CALCIUM, TOTAL 8.7 mg/dL (8.8-10.5); CREATININE 1.49 mg/dL (0.60-1.30); POTASSIUM 4.8 mmol/L (3.5-5.1)
[2019-07-28 09:04] LABS: HEMOGLOBIN A1C 6.3 % (3.8-5.6)
[2019-07-28 11:32] VITALS: BP 125/95
[2019-07-28 16:46] VITALS: BP 102/67
[2019-07-28 19:18] LABS: C-REACTIVE PROTEIN QUANT 0.06 mg/dL (0.00-0.30)
[2019-07-28] MEDS ORDERED: VANCOMYCIN HCL 500 MG in DEXTROSE 5%-WATER 100 ML IV SCH (20:00)
[2019-07-28] MEDS: QUEtiapine FUMARATE 200 MG TABLET PO SCH (20:19)
[2019-07-28 20:27] VITALS: BP 128/55
[2019-07-28 23:57] VITALS: BP 119/84
[2019-07-29 04:00] VITALS: BP 148/79
[2019-07-29] MEDS: OxyCODONE HCL/ACETAMINOPHEN 5-325 MG TABLET PO PRN ×2 (04:56→20:19)
[2019-07-29 05:53] LABS: CALCIUM, TOTAL 8.7 mg/dL (8.8-10.5); CREATININE 1.54 mg/dL (0.60-1.30); POTASSIUM 4.3 mmol/L (3.5-5.1); VANCOMYCIN,RANDOM 10.3 mcg/mL (25.0-50.0)
[2019-07-29 07:48] VITALS: BP 141/74
[2019-07-29] MEDS: VANCOMYCIN HCL 500 MG in DEXTROSE 5%-WATER 100 ML IV SCH (08:38)
[2019-07-29] MEDS: DOCUSATE SODIUM 100 MG CAPSULE PO SCH ×2 (08:38→20:08)
[2019-07-29] MEDS: TAMSULOSIN HCL 0.4 MG CAPSULE PO SCH (08:39)
[2019-07-29] MEDS: FAMOTIDINE 10 MG/ML 2 ML VIAL IVP SCH (08:39)
[2019-07-29] MEDS: BENAZEPRIL HCL 20 MG TABLET PO SCH (08:39)
[2019-07-29 11:25] VITALS: BP 144/72
[2019-07-29] MEDS ORDERED: GADOBUTROL 1 MMOL/ML 10 ML VIAL IVP ONE (12:19)
[2019-07-29 15:10] VITALS: BP 134/86
[2019-07-29] MEDS: QUEtiapine FUMARATE 200 MG TABLET PO SCH (20:08)
[2019-07-30 00:22] VITALS: BP 136/77
[2019-07-30 04:38] VITALS: BP 133/67
[2019-07-30 05:54] LABS: CALCIUM, TOTAL 8.6 mg/dL (8.8-10.5); CREATININE 1.63 mg/dL (0.60-1.30); POTASSIUM 4.5 mmol/L (3.5-5.1)
[2019-07-30 07:52] VITALS: BP 134/68
[2019-07-30] MEDS: TAMSULOSIN HCL 0.4 MG CAPSULE PO SCH (07:59)
[2019-07-30] MEDS: OxyCODONE HCL/ACETAMINOPHEN 5-325 MG TABLET PO PRN ×3 (07:59→20:54)
[2019-07-30] MEDS: BENAZEPRIL HCL 20 MG TABLET PO SCH (07:59)
[2019-07-30] MEDS: DOCUSATE SODIUM 100 MG CAPSULE PO SCH ×2 (07:59→20:54)
[2019-07-30] MEDS: FAMOTIDINE 10 MG/ML 2 ML VIAL IVP SCH (08:00)
[2019-07-30 11:31] VITALS: BP 154/68
[2019-07-30] MEDS ORDERED: VANCOMYCIN HCL 1.25 GM in DEXTROSE 5%-WATER 250 ML IV ONE (15:00)
[2019-07-30 15:28] VITALS: BP 148/64
[2019-07-30] MEDS: CefTAZidime PENTAHYDRATE 2 GM in DEXTROSE 5%-WATER 50 ML IV SCH (18:04)
[2019-07-30 19:30] VITALS: BP 141/66
[2019-07-30] MEDS: QUEtiapine FUMARATE 200 MG TABLET PO SCH (20:55)
[2019-07-31 00:20] VITALS: BP 138/68
[2019-07-31 04:00] VITALS: BP 139/71
[2019-07-31] MEDS: CefTAZidime PENTAHYDRATE 2 GM in DEXTROSE 5%-WATER 50 ML IV SCH ×2 (04:07→15:29)
[2019-07-31 06:35] LABS: CALCIUM, TOTAL 8.5 mg/dL (8.8-10.5); CREATININE 1.51 mg/dL (0.60-1.30); POTASSIUM 4.3 mmol/L (3.5-5.1)
[2019-07-31 07:47] VITALS: BP 149/85
[2019-07-31] MEDS: TAMSULOSIN HCL 0.4 MG CAPSULE PO SCH (07:56)
[2019-07-31] MEDS: DOCUSATE SODIUM 100 MG CAPSULE PO SCH (07:56)
[2019-07-31] MEDS: FAMOTIDINE 10 MG/ML 2 ML VIAL IVP SCH (07:56)
[2019-07-31] MEDS: BENAZEPRIL HCL 20 MG TABLET PO SCH (07:56)
[2019-07-31] MEDS ORDERED: VANCOMYCIN HCL 1.25 GM in DEXTROSE 5%-WATER 250 ML IV SCH (08:00)
[2019-07-31 11:27] VITALS: BP 129/69
[2019-07-31 16:00] VITALS: BP 171/76
[2019-07-31] MEDS: OxyCODONE HCL/ACETAMINOPHEN 5-325 MG TABLET PO PRN (17:36)
== END 2019-07-31 19:30 | DRG 638 ==
LOC: EMS 06:37 → 4E 11:23
PROVIDERS: ADMIT Internal Medicine; ATTEND Internal Medicine
PROC: B54NZZA Ultrasonography of Left Upper Extremity Veins, Guidance (ICD-10-PCS; 2019-07-30)
PROC: 05HY33Z Insertion of Infusion Device into Upper Vein, Percutaneous Approach (ICD-10-PCS; 2019-07-30)
PROC: 02HV33Z Insertion of Infusion Device into Superior Vena Cava, Percutaneous Approach (ICD-10-PCS; principal; 2019-07-31)
PROC: B548ZZA Ultrasonography of Superior Vena Cava, Guidance (ICD-10-PCS; 2019-07-31)
DX: E11.69 Type 2 diabetes mellitus with other specified complication (principal); E44.0 Moderate protein-calorie malnutrition; M86.142 Other acute osteomyelitis, left hand; F14.90 Cocaine use, unspecified, uncomplicated; F12.90 Cannabis use, unspecified, uncomplicated; F15.90 Other stimulant use, unspecified, uncomplicated; F17.210 Nicotine dependence, cigarettes, uncomplicated; F19.10 Other psychoactive substance abuse, uncomplicated; M19.90 Unspecified osteoarthritis, unspecified site; E11.22 Type 2 diabetes mellitus with diabetic chronic kidney disease; I12.9 Hypertensive chronic kidney disease with stage 1 through stage 4 chronic kidney disease, or unspecified chronic kidney disease; J44.9 Chronic obstructive pulmonary disease, unspecified; F20.9 Schizophrenia, unspecified; Z59.0 Homelessness; Z88.0 Allergy status to penicillin; Z85.46 Personal history of malignant neoplasm of prostate; Z68.21 Body mass index [BMI] 21.0-21.9, adult; N18.3 Chronic kidney disease, stage 3 (moderate)
CPT/HCPCS: 36245; 36569; 73223; 73502; 76937; 83036; 83605; 86140; 87040; 96365; A9585; G0378; J0696; J0713; J2270; J3370; J3490; J7040; J7060

== ENCOUNTER 2021-06-10 11:34 | Emergency (ER) | payer MEDICARE, OTHER ==
[~2021-06-10] VITALS: Ht 182.9 cm; Wt 97.3 kg
[~2021-06-10 11:34] MED LIST changes: +BENA20TA83 PO; -BENA5TAB26 PO
[2021-06-10] MEDS ORDERED: ALBUTEROL SULFATE HFA 90 MCG/PUFF 8 GM INHALER IH ONE (11:45)
[2021-06-10] MEDS ORDERED: PredniSONE 20 MG TABLET PO ONE (11:45)
[2021-06-10 12:04] LABS: BASOPHILS % (AUTO) 0.7 % (0.0-2.0); EOSINOPHILS % (AUTO) 2.4 % (1.0-6.0); HEMATOCRIT 38.7 % (41-53); LYMPHOCYTES # (AUTO) 1.6 K/uL (1.0-4.8); LYMPHOCYTES % (AUTO) 29.2 % (22.0-44.0); MEAN CORPUSCULAR HEMOGLOBIN 29.4 pg (26.0-34.0); MEAN CORPUSCULAR HGB CONC 33.6 G/dL (31.0-37.0); MEAN CORPUSCULAR VOLUME 88 fL (80-100); MONOCYTES # (AUTO) 0.5 K/uL (0.1-1.0); MONOCYTES % (AUTO) 8.5 % (2.0-9.0); NEUTROPHILS # (AUTO) 3.2 K/uL (1.8-7.7); NEUTROPHILS % (AUTO) 59.2 % (40.0-70.0); PLATELET COUNT (AUTO) 320 K/uL (150-450); RED BLOOD CELL COUNT(AUTO) 4.42 MIL/uL (4.50-5.90); RED CELL DISTRIBUTION WIDTH 14.6 % (11.5-14.5)
[2021-06-10 12:13] LABS: ANION GAP 2 mmol/L (8-16); CALCIUM, TOTAL 8.8 mg/dL (8.8-10.5); CARBON DIOXIDE 31 mmol/L (22-29); CHLORIDE 105 mmol/L (98-107); CREATININE 1.71 mg/dL (0.60-1.30); GLOMERULAR FILTR. RATE CALC 39 mL/min (>60); GLUCOSE,RANDOM 123 mg/dL (70-110); POTASSIUM 4.7 mmol/L (3.5-5.1); SODIUM SERUM 138 mmol/L (136-145); UREA NITROGEN, BLOOD 13 mg/dL (7-18)
[2021-06-10 12:18] LABS: PROTHROMBIN TIME 10.9 SEC (9.4-11.6)
[2021-06-10 12:32] LABS: B-TYPE NATRIURETIC PEPTIDE < 5 pg/mL (0-100)
[2021-06-10 12:34] VITALS: BP 124/76
[2021-06-10 12:39] LABS: ALANINE AMINOTRANSFERASE 23 U/L (12-78); ALBUMIN 3.6 g/dL (3.4-5.0); ALKALINE PHOSPHATASE 104 U/L (46-116); ASPARTATE AMINOTRANSFERASE 17 U/L (15-37); BILIRUBIN,TOTAL 0.3 mg/dL (0.1-1.0); C-REACTIVE PROTEIN QUANT 0.15 mg/dL (0.00-0.30); CREATINE KINASE, TOTAL ONLY 154 U/L (39-308); FERRITIN 31 ng/mL (26-388); TOTAL PROTEIN, SERUM 7.3 g/dL (6.4-8.2)
[2021-06-10] MEDS ORDERED: PRED20 PO (12:52)
[2021-06-10 13:22] LABS: APPEARANCE,URINE CLEAR (CLEAR); BILIRUBIN,URINE NEGATIVE (NEGATIVE); GLUCOSE, URINE (UA) NEGATIVE (NEGATIVE); KETONES,URINE NEGATIVE (NEGATIVE); LEUKOCYTE ESTERASE ,URINE NEGATIVE (NEGATIVE); NITRATE,URINE NEGATIVE (NEGATIVE); OCCULT BLOOD,URINE NEGATIVE (NEGATIVE); PROTEIN,URINE NEGATIVE (NEGATIVE); UROBILINOGEN,URINE 0.2 mg/dL (<=1.0)
== END 2021-06-10 13:31 | disposition home or self-care (01) ==
LOC: EMS 11:42
DX: U07.1 COVID-19 (principal); I10 Essential (primary) hypertension; F20.9 Schizophrenia, unspecified; F12.90 Cannabis use, unspecified, uncomplicated; F15.90 Other stimulant use, unspecified, uncomplicated; F17.210 Nicotine dependence, cigarettes, uncomplicated; Z88.0 Allergy status to penicillin; Z79.899 Other long term (current) drug therapy
CPT/HCPCS: 36415; 71045; 80053; 81003; 82550; 82728; 83880; 84484; 85025; 85610; 85730; 86140; 93005; 94640; 99285; J7512; J3535

== ENCOUNTER 2022-09-10 00:38 | Emergency (ER) | payer MEDICARE, OTHER ==
[~2022-09-10] VITALS: Ht 185.4 cm; Wt 73.6 kg
[~2022-09-10 00:38] MED LIST changes: -BENA20TA83 PO; +DEXA2 PO; +LEVO-72 PO; +OLAN10TA22 PO; -QUET200T PO
[2022-09-10] MEDS ORDERED: KETOROLAC TROMETHAMINE 30 MG/ML VIAL IM ONE (02:15)
[2022-09-10] MEDS ORDERED: KETOROLAC TROMETHAMINE 60 MG/2 ML VIAL IM ONE (02:15)
[2022-09-10 03:30] VITALS: BP 143/75
== END 2022-09-10 04:50 | disposition home or self-care (01) ==
LOC: EMS 00:42
DX: F20.9 Schizophrenia, unspecified (principal); I10 Essential (primary) hypertension; F17.210 Nicotine dependence, cigarettes, uncomplicated; F12.90 Cannabis use, unspecified, uncomplicated; F15.90 Other stimulant use, unspecified, uncomplicated; F14.90 Cocaine use, unspecified, uncomplicated; Z88.0 Allergy status to penicillin
CPT/HCPCS: 99283; 96372; J1885